=== PATIENT | male | born 1965 | race Caucasian/White ===

== ENCOUNTER 2016-11-25 16:06 | Emergency (ER) | payer OTHER ==
[~2016-11-25] VITALS: Ht 172.7 cm; Wt 68.0 kg
== END 2016-11-25 16:45 | disposition short-term general hospital (02) ==
LOC: ER 16:06
PROC: 08C1XZZ Extirpation of Matter from Left Eye, External Approach (ICD-10-PCS; principal; 2016-11-25)
DX: T15.92XA Foreign body on external eye, part unspecified, left eye, initial encounter (principal)